=== PATIENT | female | born 1970 | race Caucasian/White ===

== ENCOUNTER 2017-05-24 19:03 | Emergency (ER) | payer OTHER ==
[~2017-05-24] VITALS: Ht 162.6 cm; Wt 95.3 kg
[~2017-05-24 19:03] MED LIST: FLEXERIL PO; NORCO 5-325 TA1 EAC1 PO; NORVASC 5 MG TAB5 MG PO; ZOFRAN ODT4 MG PO
[2017-05-24] MEDS ORDERED: IBUPROFEN 800800 MG PO (19:52)
[2017-05-24] MEDS ORDERED: TRAMADOL 50 MG50 MG PO (19:52)
[2017-05-24 20:10] VITALS: BP 140/103
== END 2017-05-24 20:13 | disposition home or self-care (01) ==
LOC: M.ERS 19:03
DX: S80.12XA Contusion of left lower leg, initial encounter (principal); I10 Essential (primary) hypertension; G47.30 Sleep apnea, unspecified; W22.8XXA Striking against or struck by other objects, initial encounter; Y93.89 Activity, other specified; Y92.89 Other specified places as the place of occurrence of the external cause; Y99.8 Other external cause status

== ENCOUNTER 2020-06-07 19:40 | Inpatient (IN) | payer BC ==
[~2020-06-07] VITALS: Ht 162.6 cm; Wt 93.0 kg
--- NOTE | ~2020-06-07 | PROC ---
[address] [address] PROCEDURE REPORT Name: PANKAJ ESCOTO Room: [address] IN M.R.#: [id number] Admission: 06/08/20 Attend Phys: Surya Villareal Discharge: 06/10/20 Date of : 72 Report #: [id number] THIS REPORT FOR: cc: FAM - No family physician/PCP FAM - No family physician/PCP [facility],Medical Records Staff ~ For GI report, please see the Provation report in Perceptive 7 content. By: [id number] Records Staff [facility] /ANTONIO
[~2020-06-07 19:40] MED LIST changes: +IBUPROFEN 800800 MG PO; -NORVASC 5 MG TAB5 MG PO; +NORVASC5 MG PO; +TRAMADOL 50 MG50 MG PO
[2020-06-07 19:58] VITALS: BP 194/106
[2020-06-07 19:58] LABS: URINE BILIRUBIN NEGATIVE (Negative); URINE BLOOD NEGATIVE (Negative); URINE CLARITY SL CLOUDY; URINE COLOR YELLOW; URINE GLUCOSE-RANDOM NEGATIVE (Negative); URINE KETONES 1+ (Negative); URINE LEUKOCYTES-REFLEX NEGATIVE (Negative); URINE NITRITE-REFLEX NEGATIVE (Negative); URINE PROTEIN TRACE (Negative); URINE SPECIFIC GRAVITY 1.015 (1.005-1.030)
[2020-06-07 20:05] LABS: MUCUS 4-6 Moderate strn/LPF (None Seen); SQUAMOUS >10 Many /LPF (0-3)
[2020-06-07 20:06] LABS: AMORPHOUS PHOSPHATES Moderate /LPF (None Seen); BACTERIA-REFLEX 1-9 Few /HPF (None Seen); CASTS None Seen /LPF (None Seen); URINE WBC-REFLEX 0-5 Rare /HPF (0-5)
[2020-06-07 20:07] LABS: URINE RBC 0-2 Rare /HPF (0-2)
[2020-06-07 20:44] LABS: ABSOLUTE BASOPHILS 0.1 thou/uL (0.0-0.2); ABSOLUTE EOSINOPHILS 0.1 thou/uL (0.0-0.7); ABSOLUTE LYMPHOCYTES 2.7 thou/uL (0.8-5.3); ABSOLUTE MONOCYTES 0.5 thou/uL (0.0-1.2); ABSOLUTE NEUTROPHILS 7.1 thou/uL (1.6-8.1); BASOPHILS 0.9 %; EOSINOPHILS 1.3 %; HEMATOCRIT 41.9 % (37.0-47.0); HEMOGLOBIN 13.9 gm/dL (12.0-15.0); LYMPHOCYTES 25.8 %; MCH 29.4 pg (26.0-34.0); MCHC 33.2 g/dL (28.0-37.0); MCV 88.4 fL (80.0-100.0); MONOCYTES 4.7 %; MPV 7.6 fl. (7.2-11.1); NUCLEATED RBCS 0 /100WBC; PLATELET COUNT* 290 thou/uL (150-400); POLYS 67.3 %; RBC 4.74 mil/uL (4.20-5.00); RDW-CV 12.9 % (10.5-14.5); WBC 10.5 thou/uL (4.0-11.0)
[2020-06-07 20:53] LABS: CALCIUM 9.6 mg/dL (8.5-10.1); CREATININE 1.1 mg/dL (0.6-1.3); POTASSIUM 3.4 mmol/L (3.5-5.1)
[2020-06-07 20:58] LABS: ALBUMIN 4.3 g/dL (3.4-5.0); TOTAL BILIRUBIN 0.7 mg/dL (<0.1-1.0); TOTAL PROTEIN 8.6 g/dL (6.4-8.2)
[2020-06-07] MEDS ORDERED: ZOFRAN ODT4 MG PO (21:29)
[2020-06-07] MEDS ORDERED: PEPCID20 MG PO (21:29)
[2020-06-07] MEDS ORDERED: OMEPRAZOLE 20 M20 M1 PO (21:29)
[2020-06-07 23:30] VITALS: BP 140/76
[2020-06-07 23:44] VITALS: BP 139/80
[2020-06-08 07:45] VITALS: BP 119/70
[2020-06-08 13:00] LABS: CALCIUM 8.9 mg/dL (8.5-10.1); POTASSIUM 4.2 mmol/L (3.5-5.1)
[2020-06-08 17:03] VITALS: BP 138/84
[2020-06-08 20:45] VITALS: BP 109/74
[2020-06-09 02:05] LABS: GLYCOHEMOGLOBIN (HGB A1C) 5.2 % (4.8-5.6)
--- NOTE | 2020-06-09 11:08 | EKG ---
[place] [address] ELECTROCARDIOGRAM REPORT Name: PANKAJ ESCOTO Room: [address] IN M.R.#: [id number] Admission: 06/08/20 Attend Phys: Valeri Anderson Discharge: Date of : 72 Date of Service: 06/07/202051 Report #: [id number] THIS REPORT FOR: //name// [facility] ED Test Date: 2020-06-07 Test Time: 20:52:49 Pat Name: PANKAJ ESCOTO Department: Room: [facility] Gender: F Make Up Arranger: [facility] : 1970 Requested By: Precious Roman Order Number: [id number] MD: Rosales Pena Measurements Intervals [place] Rate: 63 P: 22 RI: 178 QRS: 13 QRSD: 82 T: 11 QT: 404 QTc: 414 Interpretive Statements Sinus rhythm Low voltage, precordial leads Probable anteroseptal infarct, old Compared to ECG 11/16/2016 20:43:59 No significant changes Electronically Signed On 06-09-2020 11:07:50 CDT by Rosales Pena [email or web address] <ELECTRONICALLY SIGNED> By: Rosales Pena MD, [facility] 06/09/20 1107 51 51 Rosales Pena MD, [facility] /EPI
[2020-06-09 17:04] VITALS: BP 134/75
[2020-06-09 20:30] VITALS: BP 118/70
[2020-06-10] MEDS ORDERED: ZOFRAN ODT4 MG PO (08:59)
[2020-06-10 16:38] VITALS: BP 138/80
== END 2020-06-10 17:51 | disposition home or self-care (01) | DRG 391 ==
LOC: M.ERS 19:40 → M.TBA-ER 21:57 → M.ORTHSURG 23:23
PROVIDERS: Emergency Medicine; Internal Medicine; Physician Assistant; ADMIT Internal Medicine; ATTEND Internal Medicine
PROC: 0D738ZZ Dilation of Lower Esophagus, Via Natural or Artificial Opening Endoscopic (ICD-10-PCS; principal; 2020-06-10)
DX: R11.2 Nausea with vomiting, unspecified (principal); Q39.4 Esophageal web; I10 Essential (primary) hypertension; R73.9 Hyperglycemia, unspecified; K21.9 Gastro-esophageal reflux disease without esophagitis; E66.9 Obesity, unspecified; K44.9 Diaphragmatic hernia without obstruction or gangrene; G47.30 Sleep apnea, unspecified; Z20.822 Contact with and (suspected) exposure to COVID-19; Z79.899 Other long term (current) drug therapy; Z68.35 Body mass index [BMI] 35.0-35.9, adult; Z98.891 History of uterine scar from previous surgery; Z90.710 Acquired absence of both cervix and uterus